=== PATIENT | male | born 1980 | race African-American/Black ===

== ENCOUNTER 2018-08-29 20:45 | Emergency (ER) | payer BC, OTHER ==
[~2018-08-29] VITALS: Ht 167.6 cm; Wt 72.0 kg
[2018-08-29 20:48] VITALS: BP 116/53; PULSE 83; RESP 16; Ht 167.6 cm; Wt 72.0 kg
[2018-08-29] MEDS ORDERED: IBUPROFEN 600 MG TAB PO ONE (21:30)
[2018-08-29] MEDS ORDERED: IBUP-1542 PO (22:47)
--- NOTE | 2018-08-29 22:47 | ERD ---
ER Documentation Chief Complaint Chief Complaint PT L shoulder pain, was hurt while wrestling HPI 38-year-old male presents to ED complaining of left shoulder pain since 5 PM this afternoon. He states that he was playing a type of basketball game at work in which he was trying to ally-oop magnets. He made an awkward movement when landing with his left shoulder and experienced pain since then. He reports the pain as 7 out of 10 intensity and states that it is aching in character. He denies any radiation of the pain and states that it is located the top of his left shoulder. He is concerned that it is dislocated which is why he came to the ED today. He has not taken any medication for his left shoulder pain. He states that he did smoke some marijuana before coming to the ED to help with his pain. He states that he feels that his shoulder is stiff and out of place. He denies past medical history ROS All systems reviewed and are negative except as per history of present illness. Medications Home Meds Active Scripts Ibuprofen* (Motrin*) 600 Mg Tab, 600 MG PO Q6H PRN for PAIN AND OR ELEVATED TEMP, #30 TAB Prov:ALEXANDREA ROJAS PA-C 08/29/18 Allergies Allergies: Coded Allergies: No Known Allergy (Unverified , 08/29/18) PMhx/Soc History of Surgery: No Anesthesia Reaction: No Hx Neurological Disorder: No Hx Respiratory Disorders: No Hx Cardiac Disorders: No Hx Psychiatric Problems: No Hx Miscellaneous Medical Probl: No Hx Alcohol Use: No Hx Substance Use: No Hx Tobacco Use: No Smoking Status: Never smoker FmHx Family History: No diabetes Physical Exam Vitals Vital Signs Date Temp Pulse Resp B/P (MAP) Pulse Ox O2 O2 Flow FiO2 Time Delivery Rate 08/29/18 97.8 83 16 116/53 100 20:48 (74) Physical Exam Const: No acute distress Head: Atraumatic Eyes: Normal Conjunctiva ENT: Normal External Ears, Nose and Mouth. Neck: Full range of motion. Skin: No petechiae or rashes Back: No midline tenderness Ext: Left shoulder: No obvious deformities, no open fractures, no bruising, no erythema, limited range of motion secondary to pain Neur: Awake and alert Psych: Normal Mood and Affect Results 24 hrs Current Medications Medications Dose Sig/Ayala Start Time Status Last (Trade) Ordered Route PRN Stop Time Admin Dose Reason Admin Ibuprofen 600 mg ONCE ONCE 08/29/18 DC 08/29/18 (Motrin) PO 21:30 21:32 08/29/18 21:31 Procedures/MDM ED COURSE: The patient was stable throughout ED course. I kept the patient informed of laboratory and diagnostic imaging results throughout the ED course. DIAGNOSTIC IMAGING: Read by radiologist. PROCEDURE: XR Left Shoulder Complete, 2 or More Views CLINICAL INDICATION: Injury. TECHNIQUE: Two or more views of the left shoulder. COMPARISON: None FINDINGS: BONES/JOINTS: Glenohumeral joint is intact. Acromioclavicular joint is intact. No fracture or acute osseous abnormality demonstrated. No dislocation. SOFT TISSUES: The soft tissues appear unremarkable, as demonstrated. IMPRESSION: No acute abnormality demonstrated. No glenohumeral dislocation. RPTAT: [facility] Brooklynn Garcia Physician Buttonhole Maker Date Time Electronically viewed and signed by Brooklynn Garcia, Physician Buttonhole Maker on 08/29/2018 22:36 PROCEDURES: none MEDICATIONS GIVEN: Motrin Patient tolerated medication well with no adverse reactions. Patient reported improvement in pain. MEDICAL DECISION MAKING: Patient is a 38-year-old male complaining of left shoulder pain since 5 PM this afternoon. He was playing [place] at work in which he made a weird movement and has felt pain since the incident. On physical exam there is no obvious deformities. Physical exam range of motion was limited secondary to pain. X- ray imaging was done which was unremarkable. Patient was concerned about a dislocation of his left shoulder but I have very low suspicion for this at this time. I also have low suspicion for fracture, muscle tear, osteomyelitis, septic joint, gout. Vital signs were reviewed. Patient is afebrile. Patient was not hypoxic. Patient was hemodynamically stable. Patient was told to follow up with primary care for further care and management. PRESCRIPTION: motrin DISCHARGE: At this time, patient is stable for discharge and outpatient management. I have instructed the patient to follow-up with his/her primary care physician in 1-2 days. I have discussed with the patient the possibility of needing to see a specialist for further workup and imaging studies if symptoms persist. I have instructed the patient to promptly return to the ER for any new or worsening symptoms including increased pain, fever, nausea, vomiting, weakness or LOC. The patient expressed understanding of and agreement with this plan. All questions were answered. Home care instructions were provided. Disclaimer: Inadvertent spelling and grammatical errors are likely due to EHR/dictation software use and do not reflect on the overall quality of patient care. Also, please note that the electronic time recorded on this note does not necessarily reflect the actual time of the patient encounter. Departure Diagnosis: Primary Impression: Shoulder pain Chronicity: acute Laterality: left Qualified Codes: M25.512 - Pain in left shoulder Condition: Fair Patient Instructions: Shoulder Pain (Uncertain Cause) Referrals: [facility] YOU HAVE RECEIVED A MEDICAL SCREENING EXAM AND THE RESULTS INDICATE THAT YOU DO NOT HAVE A CONDITION THAT REQUIRES URGENT TREATMENT IN THE EMERGENCY DEPARTMENT. FURTHER EVALUATION AND TREATMENT OF YOUR CONDITION CAN WAIT UNTIL YOU ARE SEEN IN YOUR DOCTORS OFFICE WITHIN THE NEXT 1-2 DAYS. IT IS YOUR RESPONSIBILITY TO MAKE AN APPOINTMENT FOR FOLOW-UP CARE. IF YOU HAVE A PRIMARY DOCTOR --you should call your primary doctor and schedule an appointment IF YOU DO NOT HAVE A PRIMARY DOCTOR YOU CAN CALL OUR PHYSICIAN REFERRAL HOTLINE AT IF YOU CAN NOT AFFORD TO SEE A PHYSICIAN YOU CAN CHOSE FROM THE FOLLOWING [facility][1] [address] [facility]. [facility] [address] [facility] [place] [address] [facility] [facility] [address] [facility]. [facility] [address] [facility]. [facility]. [address] [facility] YOU HAVE RECEIVED A MEDICAL SCREENING EXAM AND THE RESULTS INDICATE THAT YOU DO NOT HAVE A CONDITION THAT REQUIRES URGENT TREATMENT IN THE EMERGENCY DEPARTMENT. FURTHER EVALUATION AND TREATMENT OF YOUR CONDITION CAN WAIT UNTIL YOU ARE SEEN IN YOUR DOCTORS OFFICE WITHIN THE NEXT 1-2 DAYS. IT IS YOUR RESPONSIBILITY TO MAKE AN APPOINTMENT FOR FOLOW-UP CARE. IF YOU HAVE A PRIMARY DOCTOR --you should call your primary doctor and schedule and appointment IF YOU DO NOT HAVE A PRIMARY DOCTOR YOU CAN CALL OUR PHYSICIAN REFERRAL HOTLINE AT . IF YOU CAN NOT AFFORD TO SEE A PHYSICIAN YOU CAN CHOSE FROM THE FOLLOWING [facility], [facility] INSTITUTIONS: [facility] [address] [place] [address] [facility] [address] [place] [address] [facility] [address] [place] [address] Additional Instructions: Call your primary care doctor TOMORROW for an appointment during the next 2-3 days.See the doctor sooner or return here if your condition worsens before your appointment time. ALEXANDREA ROJAS PA-C Aug 29, 2018 22:47
== END 2018-08-29 23:12 | disposition home or self-care (01) ==
LOC: FTE 20:45
DX: M25.512 Pain in left shoulder (principal)
CPT/HCPCS: 73030